=== PATIENT | male | born 1950 | race Two or more races ===

== ENCOUNTER 2025-09-18 13:53 | Emergency (ER) | payer MEDICARE, MEDICAID, SELFPAY ==
[2025-09-18 13:55] VITALS: BP 114/78; PULSE 57; RESP 18; TEMP 36.4; O2SAT 98
[2025-09-18 13:56] VITALS: PULSE 60; RESP 18; O2SAT 94
[2025-09-18 14:01] VITALS: BMI 25.0
--- NOTE | 2025-09-18 14:18 | XR_ITS ---
EXAMINATION: AP chest single view TECHNIQUE: AP portable upright chest single view Date and time: September 18, 2025, 1457 hours, comparison May 12, 2016 INDICATION: Syncopal episode today. FINDINGS: Normal heart size No aspiration pneumonia Significant osteopenia IMPRESSION: Negative for aspiration pneumonia
--- NOTE | 2025-09-18 14:18 | XR_ITS ---
Examination: CT maxillofacial, without intravenous contrast. 2-D sagittal reconstructions. 3-D reconstructions. Date and time of exam: September 18, 2025, 1440 hours INDICATIONS: Ground-level fall today with injury to the face, facial pain CTDI: vol (mGy): 19.4 DLP: (mGycm): 340 Technique: Multiple axial images of maxillofacial region, 3.0 mm slice thickness. 2-D sagittal and coronal reconstructions. 3-D reconstructions. Low dose protocols were performed. One or more of the following dose reduction techniques were used; automated exposure control, adjustment of the mA and/or KV according to patient size, use of iterative reconstruction technique. Findings: Frontal bone frontal sinuses intact No nasal bone fracture No depression zygomatic arches Pterygoid plates maxilla and the mandible intact IMPRESSION: No acute facial fracture.
--- NOTE | 2025-09-18 14:18 | XR_ITS ---
Examination: CT brain head without contrast. 2-D sagittal coronal reconstructions Date and time of exam: September 18, 2025, 1440 hours INDICATIONS: Patient fell today with injury to the head, head pain CTDI: vol (mGy): 51.3 DLP: (mGycm): 993 Technique: Multiple CT axial sections of the brain have been obtained, 5 mm slice thickness. Contrast has not been administered. 2-D sagittal, coronal reconstructions have been obtained Low dose protocols were performed. One or more of the following dose reduction techniques were used; automated exposure control, adjustment of the mA and/or KV according to patient size, use of iterative reconstruction technique. Findings: No significant ventricular enlargement. Intra-axial or extra-axial hemorrhage density is not seen. No mass effect or midline shift Basal cisterns are not remarkable. Fourth ventricle is midline. Cranial vault intact. Impression: Negative for acute hemorrhage, mass effect or midline shift
--- NOTE | 2025-09-18 14:18 | XR_ITS ---
Examination: CT cervical spine without contrast 2-D sagittal reconstructions 2-D coronal reconstructions 3-D reconstructions. Exam date and time: September 18, 2025, 1440 hours INDICATIONS: Ground-level fall today with injury to the neck, neck pain CTDI:vol (mGy) 14.7 DLP: (mGycm) 310 Technique: Multiple 2 mm axial sections of the cervical spine have been obtained. The coronal and sagittal reconstructions have been obtained. 3-D reconstructions have been obtained. Low dose protocols were performed. One or more of the following dose reduction techniques were used; automated exposure control, adjustment of the mA and/or KV according to patient size, use of iterative reconstruction technique. Findings: Axial sections demonstrate intact base of the skull. C1 exhibit satisfactory relationship to the odontoid. No acute cervical vertebral body fracture seen. Alignment posterior spinous processes satisfactory. Impression: No acute cervical fracture.
--- NOTE | 2025-09-18 14:19 | EKG_ITS ---
[facility] Test Date: 2025-09-18 Pat Name: BOB MOHR Department: Room: - Gender: Male Billing Representative: : 1950 Requested By: Jeronimo Washington Order Number: [id number] Reading MD: Jeronimo Washington Measurements Intervals [place] Rate: 59 P: 35 SD: 176 QRS: 58 QRSD: 140 T: 33 QT: 409 QTc: 405 Interpretive Statements SINUS BRADYCARDIA RIGHT BUNDLE BRANCH BLOCK [120+ ms QRS DURATION, UPRIGHT V1, 40+ ms S IN I/aVL/V4/V5/V6] Compared to ECG 06/04/2020 13:06:18 No significant changes /store/S0/[id number].pdf
--- NOTE | 2025-09-18 14:20 | PD.EDSYNC ---
ED Syncope RME/HPI General Chief Complaint: Syncope / Near Syncope Stated Complaint: SYNCOPE Time Seen by Provider: 09/18/25 14:13 Arrival date/time: 09/18/25 13:53 74-year-old male patient with significant history of COPD, hypertension currently on Eliquis, was brought in for evaluation regarding syncope. Patient was in market, patient was noted to syncope, face forward sustaining abrasion to the nose. Patient denies any nausea denies any vomiting. Patient complained of headache, severity mild. Denies any neck pain denies any chest pain denies any other complaints no medication was taken prior to ER visit. Incident happened few minutes prior to ER visit. Related Data Home Medications ?Medication ?Instructions ?Recorded ?Confirmed albuterol sulfate 90 mcg/actuation 2 puff inhalation Q4H PRN 06/08/20 06/08/20 aerosol inhaler (Ventolin HFA) Shortness Of Breath apixaban 2.5 mg tablet (Eliquis) 2.5 mg PO BID 06/08/20 06/08/20 gabapentin 300 mg capsule 300 mg PO QDAY 06/08/20 06/08/20 hydrocodone 5 mg-acetaminophen 325 1 tab PO Q4H PRN pain 06/08/20 06/08/20 mg tablet (Cushing) tizanidine 4 mg tablet 4 mg PO Q8H PRN Severe Pain (Scale 06/08/20 06/08/20 Score 7-10) Allergies Allergy/AdvReac Type Severity Reaction Status Date / Time No Known Allergies Allergy Verified 09/18/25 13:59 Review of Systems Review of Systems Narrative Review of Systems: Review of system reviewed and within normal limits except mentioned in HPI ED Exam Narrative Physical exam: VITAL SIGNS: Reviewed. GENERAL APPEARANCE: Alert and interactive, follows commands, no acute distress, HEAD AND FACE: Abrasion to the bridge of the nose, no deformity ENT: PERRL, pink conjunctivitis, eyelid no trauma, Mucous membrane moist. NECK: Supple, nontender, no nuchal rigidity. CHEST: No tenderness, no crepitus, no paradoxical movement, no retractions. LUNGS: Clear, well ventilated, symmetric, no rales, no wheezing, no ronchi, no stridor, good breath sounds bilaterally. HEART: Regular rate, regular rhythm, no murmur, no gallops. ABDOMEN: Soft, positive bowel sounds, nondistended, no guarding, nontender, no rebound, no masses, RECTAL: Deferred. GENITAL: Deferred. NEUROLOGICAL: Gross motor function intact sensory function intact, Appropriate for age. MUSCULOSKELETAL: low back nontender, full range of motion. EXTREMITIES: Nontender, full range of motion. SKIN: Color pink, dry, no rash, no lacerations, no abrasions, no contusions. LYMPHATICS: Deferred. Course Quality Measures none Orders Category Date Time Status EKG (ED ONLY) *Do not use* NOW Care 09/18/25 14:19 Completed EKG (ED ONLY) *Do not use* NOW Care 09/18/25 14:[address] cervical spine wo con Stat Exams 09/18/25 14:[address] facial bones wo con Stat Exams 09/18/25 14:[address] head/brain wo con Stat Exams 09/18/25 14:18 Completed EKG (ED Only) Stat Exams 09/18/25 14:19 Draft EKG (ED Only) Stat Exams 09/18/25 14:19 Ordered XR chest 1V Stat Exams 09/18/25 14:18 Completed B-Type Natriuretic Peptide Stat Lab 09/18/25 14:40 Completed CBC Stat Lab 09/18/25 14:40 Completed Comprehensive Metabolic Panel Stat Lab 09/18/25 14:40 Completed Partial Thromboplastin Time Stat Lab 09/18/25 14:40 Completed Troponin I Stat Lab 09/18/25 14:40 Completed Urinalysis, C/S if Indicated Stat Lab 09/18/25 16:15 Completed Vital Signs Vital signs: Vital Signs Temperature 97.6 F 09/18/25 13:55 Pulse Rate 57 L 09/18/25 13:55 Respiratory Rate 18 09/18/25 13:55 Blood Pressure 114/78 09/18/25 13:55 Pulse Oximetry (%) 98 09/18/25 13:55 Oxygen Delivery Method Room Air 09/18/25 13:55 Syncope MDM Narrative MDM Narrative:: 74-year-old male patient with significant history of COPD, hypertension currently on Eliquis, was brought in for evaluation regarding syncope. Patient was in market, patient was noted to syncope, face forward sustaining abrasion to the nose. Patient denies any nausea denies any vomiting. Patient complained of headache, severity mild. Denies any neck pain denies any chest pain denies any other complaints no medication was taken prior to ER visit. Incident happened few minutes prior to ER visit. Patient workup today all came back normal including all the imaging we did today including CT scan of the head face neck chest x-ray, all came back unremarkable. EKG showed normal sinus bradycardia, ventricular rate of [address] segment elevation depression noted. Patient is denying any complaints prior to discharge. Was noted to be ambulatory going to the restroom with no recurrence of near-syncope. Or syncope. Stable discharge home Patient data External records reviewed:: None Clinical information provided by:: patient and family Social determinants that could affect healthcare access:: none Patient has the following chronic illnesses:: Diabetes mellitus How is presenting disease/condition affected by chronic disease/condition?: uneffected by Evaluation data The following diagnostics were reviewed and interpreted by me:: lab results, radiology exam(s) and EKG tracing(s) Lab and/or radiology exams considered but not ordered:: None Interpretation Summary: See above Medications / Prescriptions Medications or Prescriptions considered but not ordered:: None Medication administrations:: None Consultations Consultation(s) initiated? (list below): No Diagnosis Syncope Differential Diagnosis: syncope due to orthostatic hypotension, vasovagal syncope and dehydration Most likely diagnosis given after review of the tests above:: Vasovagal syncope Admission Indicated Admission indicated?: not indicated Admission Request Was there a request for admission?: No Disposition Plan Disposition Plan: Discharge Discharge Attestation Discharge Attestation: The patient and all family members were given an opportunity to ask questions and understood the discharge instructions. Discharge instructions specifically effects, indications for sooner follow up or return to the emergency department, and the expected course of current diagnosis. Patient condition: Stable Discharge Plan Plan Patient Disposition: HOME (Self Care) Discharge Disposition comment: Stable Prescriptions/Referrals Prescriptions/Med Rec: No Action tizanidine 4 mg Tablet 4 mg PO Q8H PRN (Reason: Severe Pain (Scale Score 7-10)) hydrocodone-acetaminophen [Cushing] 5-325 mg Tablet 1 tab PO Q4H PRN (Reason: pain) gabapentin 300 mg Capsule 300 mg PO QDAY albuterol sulfate [Ventolin HFA] 90 mcg/actuation Hfa Aerosol Inhaler 2 puff INHALATION Q4H PRN (Reason: Shortness Of Breath) Eliquis 2.5 mg Tablet 2.5 mg PO BID Rx Instructions: for 2 weeks Referrals: Mary Ann Campbell FNP [Primary Care Provider] - In 1 week Problem List Clinical Impression: Abrasion of nose, Syncope, vasovagal Patient/Caregiver Discharge Instructions Discharge Activity: activity as tolerated Education Materials: Causes of Syncope Additional Instructions: Thank you for the opportunity for serving you today. You are stable for discharged . You are advised to: Follow-up with your PCP in 1 to 2 days Return to ED for worsening of symptoms Increase oral fluids Take medication as prescribed Apply triple antibiotic to your nasal abrasion daily as needed Print Language: Haitian Stand Alone Forms: Latrice Award Info., Patient Portal Info Letter NOEL/CANDIDA Supervising Physician NOEL/CANDIDA Supervising Physician: MD Sarath
[2025-09-18 15:06] LABS: Basophils # (Auto) 0.0 Thou/mm3 (0.0-0.2); Basophils % (Auto) 1 % (0-2.5); Eosinophils # (Auto) 0.1 Thou/mm3 (0.0-0.5); Eosinophils % (Auto) 2 % (0-10); Hematocrit 31.7 % (41.0-53.0); Hemoglobin 10.6 g/dL (13.5-16.0); Immature Granulocytes Auto 0.02 Thou/mm3 (0.00-0.00); Lymphocytes # (Auto) 1.2 Thou/mm3 (1.0-4.8); Lymphocytes % (Auto) 20 % (10-50); Mean Corpuscular HGB Conc 33.4 g/dl (31.0-37.0); Mean Corpuscular Hemoglobin 30.5 pg (25.0-35.0); Mean Corpuscular Volume 91 fL (80-100); Monocytes # (Auto) 0.4 Thou/mm3 (0.0-0.8); Monocytes % (Auto) 8 % (0-12); Neutrophils # (Auto) 3.9 Thou/mm3 (1.8-7.7); Neutrophils % (Auto) 69 % (37-80); Nucleated Red Blood Cell # 0.00 Thou/mm3 (0.00-0.00); Nucleated Red Blood Cell % 0 /100 WBC (0); Platelet Count 285 Thou/mm3 (140-440); RDW Standard Deviation 46.4 fL (35.1-43.9); Red Blood Count 3.47 Miln/mm3 (4.50-5.90); White Blood Count 5.7 Thou/mm3 (3.8-10.6)
[2025-09-18 15:22] LABS: Partial Thromboplastin Time 25.1 Seconds (22.0-36.0)
[2025-09-18 15:25] LABS: B-Type Natriuretic Peptide 66 pg/mL (0-100)
[2025-09-18 15:26] LABS: Alanine Aminotransferase 11 U/L (10-49); Albumin, Serum 4.0 gm/dL (3.4-4.8); Albumin/Globulin Ratio 1.7 (1.2-2.2); Alkaline Phosphatase 118 U/L (46-116); Anion Gap 7 (7-16); Aspartate Amino Transferase 17 U/L (0-34); BUN/Creatinine Ratio 15 Ratio (12-20); Bilirubin,Total 0.3 mg/dL (0.3-1.2); Blood Urea Nitrogen 12 mg/dL (9-23); Calcium 9.0 mg/dL (8.3-10.6); Calcium (Corrected) 9.0 mg/dL (8.5-10.1); Carbon Dioxide 28.2 mMol/L (20.0-31.0); Chloride 105 mMol/L (98-107); Creatinine (Component) 0.8 mg/dL (0.6-1.3); Estimated Creatinine Clearance 80.8 mL/min (>60); Globulin 2.4 gm/dL (2.3-3.5); Glucose 109 mg/dL (74-106); Osmolality,Calculated 280 (275-295); Potassium 4.3 mMol/L (3.4-5.1); Sodium 140 mMol/L (136-145); Total Protein 6.4 gm/dL (5.7-8.2); Troponin I < 0.002 ng/mL (0.0-0.045); eGFR > 60 See Note
[2025-09-18 16:22] LABS: Collection Type, Urine Clean Catch
[2025-09-18 16:37] LABS: Bilirubin,Urine Negative (Negative); Blood,Urine Negative (Negative); Calcium Oxalate Crystals,Urine 2+; Color,Urine Yellow (Lt Yel-Yel); Culture Indicated,Urine Not Indicated; Glucose, Urine Trace (Negative); Hyaline Casts,Urine 1 /hpf (0-1); Ketones,Urine Trace (Negative); Leukocyte Esterase,Urine Negative (Negative); Nitrite,Urine Negative (Negative); PH,Urine 6.0 (5.0-7.0); Protein,Urine 1+ (Neg - Trace); RBC,Urine 5 /hpf (0-3); Specific Gravity,Urine 1.027 (1.001-1.035); Squamous Epithelial Cell,Urine 1 /hpf (0-5); Urobilinogen,Urine 2.0 mg/dL (0.0-1.0); WBC,Urine 2 /hpf (0-5)
[2025-09-18 16:41] LABS: Clarity,Urine Hazy (Clear/Hazy)
[2025-09-18 17:06] VITALS: BP 118/64; PULSE 68; RESP 18; TEMP 36.6; O2SAT 99
== END 2025-09-18 17:07 | disposition home or self-care (01) ==
PROVIDERS: Nurse Practitioner Family; Emergency Provider Family Medicine; PCP Registered Nurse Community Health
DX: S00.31XA Abrasion of nose, initial encounter (principal); I10 Essential (primary) hypertension; J44.9 Chronic obstructive pulmonary disease, unspecified; Z79.01 Long term (current) use of anticoagulants
CPT/HCPCS: 36415; 70450; 70486; 71045; 72125; 80053; 81001; 83880; 84484; 85025; 85730; 93005; 99283